=== PATIENT | male | born 1970 | race African-American/Black ===

== ENCOUNTER 2020-11-28 11:56 | Inpatient (IN) | payer OTHER ==
[2020-11-28 12:40] LABS: VENOUS BASE EXCESS -4.3 mmol/L (-2-2); VENOUS O2 SATURATION 84.9 % (70-80); VENOUS PCO2 57.9 mmHg (38-52); VENOUS PH 7.226 (7.310-7.410)
[2020-11-28 12:45] LABS: BASO % 0.1 % (0-2.0); EOS % 0.6 % (0-4.5); HEMATOCRIT 28.7 % (35.4-49); HEMOGLOBIN 9.1 GM/dL (11.7-16.9); MCH 27.1 pg (25.7-33.7); MCHC 31.8 g/dl (32.0-35.9); MEAN CELL VOLUME 85.1 fl (80-96); MONO % 4.2 % (3.8-10.2); NEUT % 89.1 % (42.8-82.8); PLATELET COUNT 92 K/MM3 (134-434); RBC 3.37 M/mm3 (4.00-5.60); RDW 16.8 % (11.9-15.9); WHITE BLOOD COUNT 14.3 K/mm3 (4.0-10.0)
[2020-11-28 13:10] LABS: CHLORIDE 114 mmol/L (98-107); SODIUM 146 mmol/L (136-145)
[2020-11-28 13:12] LABS: ALBUMIN 1.8 g/dl (3.4-5.0); CALCIUM 7.6 mg/dL (8.5-10.1)
[2020-11-28 13:13] LABS: EPI CELLS >36 /uL (0-25.1); HYALINE CASTS 4 /uL (0-3.1); PH,URINE 6.5 (5.0-8.0); URINE APPEARANCE CLEAR; URINE BACTERIA 117 /uL (0-1359); URINE BILIRUBIN NEGATIVE (NEGATIVE); URINE COLOR YELLOW; URINE GLUCOSE (UA) NEGATIVE (NEGATIVE); URINE KETONE NEGATIVE (NEGATIVE); URINE LEUK ESTERASE 1+ (NEGATIVE); URINE NITRITE NEGATIVE (NEGATIVE); URINE PROTEIN 1+ (NEGATIVE); URINE RBC 12 /uL (0-23.9); URINE UROBILINOGEN 0.2 mg/dL (0.2-1.0); URINE WBC 76 /uL (0-25.8)
[2020-11-28 13:13] LABS: BLOOD UREA NITROGEN 11.5 mg/dL (7-18); CO2 23 mmol/L (21-32); GLUCOSE,RANDOM 147 mg/dL (74-106)
[2020-11-28 13:15] LABS: BILIRUBIN,DIRECT 0.2 mg/dL (0.0-0.2); SGOT/AST 16 U/L (15-37); SGPT/ALT 15 U/L (13-61)
[2020-11-28 13:17] LABS: BILIRUBIN,TOTAL 0.3 mg/dL (0.2-1); LDH 286 U/L (87-246); TOT PROT 6.4 g/dl (6.4-8.2)
[2020-11-28 13:18] LABS: ALK PHOS 100 U/L (45-117)
[2020-11-28 13:27] LABS: ANION GAP 9 MMOL/L (8-16)
[2020-11-28 13:29] LABS: POTASSIUM 2.9 mmol/L (3.5-5.1)
[2020-11-28 13:40] LABS: ANISOCYTOSIS 1+; MACROCYTOSIS 0; PLATELET ESTIMATE DECREASED
[2020-11-28] MEDS ORDERED: DEXAMETHASONE SOD PHOSPHATE 10 MG/1 ML VIAL IVPUSH ONE (13:40)
[2020-11-28 15:11] LABS: MAGNESIUM 1.1 mg/dL (1.8-2.4)
[2020-11-28] MEDS ORDERED: PIPERACILLIN/TAZOB 4.5 GM 4.5 GM in DEXTROSE 5%-WATER 100 ML IVPB ONE (15:37)
[2020-11-28] MEDS ORDERED: VANCOMYCIN/WATER BAGS 1,250 MG/250 ML BAG IVPB SCH (16:15)
[2020-11-28] MEDS ORDERED: MAGNESIUM SULF 50% (8.12 MEQ/2 ML-1 GM VIAL) IVPB ONE (16:32)
[2020-11-28] MEDS ORDERED: KCL 10 MEQ IVPB 30 MEQ/300 ML INFUS.BAG IVPB ONE (16:34)
[2020-11-28] MEDS ORDERED: PIPERACILLIN/TAZOB 4.5 GM 4.5 GM/100 ML BAG IVPB ONE (16:34)
[2020-11-28] MEDS ORDERED: VANCOMYCIN 1 GRAM (PRE-DOCKED) 1,000 MG/250 ML BAG IVPB ONE ×2 (16:34→18:53)
[2020-11-28] MEDS ORDERED: POTASSIUM CHLORIDE ORAL LIQUID 20 MEQ/15 ML PO ONE (17:13)
[2020-11-28] MEDS ORDERED: MAGNESIUM SULFATE IN WATER 2 GM/50 ML IVPB IVPB ONE (17:57)
[2020-11-28] MEDS ORDERED: PIPERACILLIN/TAZOB 4.5 GM 4.5 GM in DEXTROSE 5%-WATER 100 ML IVPB SCH (18:00)
[2020-11-28] MEDS ORDERED: CEFEPIME HCL/D5W 2 GM/50 ML BAG IVPB SCH (22:00)
[2020-11-28] MEDS ORDERED: levETIRAcetam 500 MG TABLET (FP) PO ONE (22:29)
[2020-11-28] MEDS ORDERED: Lacosamide 200 MG/20 ML VIAL IVPB ONE (22:29)
[2020-11-28] MEDS ORDERED: ATORVASTATIN CA 10 MG TABLET (FP) ONE (22:30)
[2020-11-28] MEDS ORDERED: CEFEPIME 1 GM/100 ML BAG IVPB ONE (22:30)
[2020-11-28] MEDS ORDERED: busPIRone HCL 5 MG TABLET ONE (22:30)
[2020-11-28] MEDS: busPIRone HCL 10 MG TABLET (FP) NR SCH (22:48)
[2020-11-28] MEDS: ATORVASTATIN CA 10 MG TABLET (FP) PEG SCH (22:48)
[2020-11-28] MEDS: levETIRAcetam 500 MG/5 ML ORAL SOLUTION (UNIT-DOSE CUPS) PEG SCH (22:49)
[2020-11-29] MEDS: Lacosamide 50 MG/5 ML ORAL SOLUTION UNIT CUPS PEG SCH ×3 (00:46→22:59)
[2020-11-29] MEDS: CEFEPIME 2 GM in DEXTROSE 5%-WATER 2 GM/100 ML BAG IVPB SCH ×2 (00:46→09:00)
[2020-11-29] MEDS: KCL 10 MEQ IVPB 10 MEQ/100 ML INFUS.BAG IVPB SCH ×2 (04:05→10:05)
[2020-11-29 04:13] LABS: POTASSIUM 3.6 mmol/L (3.5-5.1)
[2020-11-29 04:15] LABS: ALBUMIN 1.8 g/dl (3.4-5.0); BLOOD UREA NITROGEN 13.2 mg/dL (7-18); CALCIUM 7.7 mg/dL (8.5-10.1); MAGNESIUM 1.5 mg/dL (1.8-2.4)
[2020-11-29 04:18] LABS: CREATININE 1.3 mg/dL (0.55-1.3)
[2020-11-29 04:20] LABS: BILIRUBIN,TOTAL 0.8 mg/dL (0.2-1); TOT PROT 6.1 g/dl (6.4-8.2)
[2020-11-29 04:32] LABS: INR 1.22 (0.83-1.09); PROTHROMBIN TIME (PATIENT) 14.9 SEC (9.7-13.0)
[2020-11-29 07:35] LABS: EOS % 0.1 % (0-4.5); HEMOGLOBIN 8.1 GM/dL (11.7-16.9); LYMPH % 5.2 % (8-40); MCH 27.2 pg (25.7-33.7); MCHC 32.5 g/dl (32.0-35.9); MEAN CELL VOLUME 83.8 fl (80-96); MEAN PLT VOLUME 11.2 fl (7.5-11.1); MONO % 1.7 % (3.8-10.2); PLATELET COUNT 107 K/MM3 (134-434); RBC 2.99 M/mm3 (4.00-5.60); RDW 16.5 % (11.9-15.9); WHITE BLOOD COUNT 19.2 K/mm3 (4.0-10.0)
[2020-11-29] MEDS: busPIRone HCL 10 MG TABLET (FP) NR SCH ×3 (07:59→23:00)
[2020-11-29 08:02] LABS: N-TERMINAL BNP 7366.1 pg/ml (5-125)
[2020-11-29] MEDS ORDERED: amLODIPine BESYLATE 5 MG TABLET (FP) ONE (08:45)
[2020-11-29] MEDS ORDERED: PANTOPRAZOLE SODIUM 40 MG VIAL ONE (08:45)
[2020-11-29] MEDS ORDERED: ENOXAPARIN NA (PORCINE) 40 MG/0.4 ML DISP.SYRIN SQ ONE (08:45)
[2020-11-29] MEDS ORDERED: ASPIRIN 81 MG CHEWABLE TABLETS ONE (08:45)
[2020-11-29] MEDS ORDERED: CEFEPIME 2 GM/100 ML BAG IVPB ONE (08:46)
[2020-11-29] MEDS: ASPIRIN 81 MG CHEWABLE TABLETS PEG SCH (09:00)
[2020-11-29] MEDS: levETIRAcetam 500 MG/5 ML ORAL SOLUTION (UNIT-DOSE CUPS) PEG SCH ×2 (09:00→22:59)
[2020-11-29] MEDS: amLODIPine BESYLATE 5 MG TABLET (FP) PEG SCH (09:00)
[2020-11-29] MEDS: ENOXAPARIN NA (PORCINE) 40 MG/0.4 ML DISP.SYRIN SQ SCH (09:00)
[2020-11-29] MEDS: PANTOPRAZOLE SODIUM 40 MG VIAL IVPUSH SCH (09:00)
[2020-11-29 09:04] LABS: ANISOCYTOSIS 2+; MACROCYTOSIS 0; PLATELET ESTIMATE DECREASED; TARGET CELLS 1+
[2020-11-29] MEDS ORDERED: Lacosamide 50 MG/5 ML ORAL SOLUTION UNIT CUPS ONE (09:04)
[2020-11-29 15:13] LABS: MAGNESIUM 1.6 mg/dL (1.8-2.4)
[2020-11-29] MEDS ORDERED: POTASSIUM CHLORIDE ORAL LIQUID 20 MEQ/15 ML PO ONE (21:12)
[2020-11-29] MEDS ORDERED: MAGNESIUM SULF 50% (8.12 MEQ/2 ML-1 GM VIAL) IVPB ONE (21:12)
[2020-11-29] MEDS ORDERED: busPIRone HCL 5 MG TABLET ONE (22:44)
[2020-11-29] MEDS ORDERED: POTASSIUM CHLORIDE ORAL LIQUID 20 MEQ/15 ML ONE (22:44)
[2020-11-29] MEDS ORDERED: ATORVASTATIN CA 10 MG TABLET (FP) ONE (22:44)
[2020-11-29] MEDS ORDERED: MAGNESIUM SULFATE IN WATER 2 GM/50 ML IVPB IVPB ONE (22:45)
[2020-11-29] MEDS: ATORVASTATIN CA 10 MG TABLET (FP) PEG SCH (22:59)
[2020-11-29] MEDS ORDERED: PIPERACILLIN/TAZOB 3.375 GM 3.375 GM/50 ML BAG IVPB ONE (23:52)
[2020-11-30] MEDS ORDERED: busPIRone HCL 5 MG TABLET ONE (06:25)
[2020-11-30] MEDS: busPIRone HCL 10 MG TABLET (FP) NR SCH ×2 (06:43→13:07)
[2020-11-30] MEDS: PIPERACILLIN/TAZOB 3.375 GM 3.375 GM in DEXTROSE 5%-WATER - 50 ML IVPB SCH ×4 (06:43→18:32)
[2020-11-30] MEDS ORDERED: ASPIRIN 81 MG CHEWABLE TABLETS ONE (09:25)
[2020-11-30] MEDS ORDERED: amLODIPine BESYLATE 5 MG TABLET (FP) ONE (09:25)
[2020-11-30] MEDS ORDERED: PANTOPRAZOLE SODIUM 40 MG VIAL ONE (09:26)
[2020-11-30] MEDS ORDERED: ENOXAPARIN NA (PORCINE) 40 MG/0.4 ML DISP.SYRIN SQ ONE (09:26)
[2020-11-30] MEDS ORDERED: PIPERACILLIN/TAZOB 3.375 GM 3.375 GM/50 ML BAG IVPB ONE ×2 (09:27→18:09)
[2020-11-30 10:22] LABS: ARTERIAL BLD GAS O2 SATURATION 98.4 mmHg (95-98); ARTERIAL BLOOD GAS BASE EXCESS -2.4 mmol/L (-2-2); ARTERIAL BLOOD GAS PO2 131.2 mmHg (80-100); ARTERIAL BLOOD GAS pH 7.327 (7.350-7.450)
[2020-11-30] MEDS: ASPIRIN 81 MG CHEWABLE TABLETS PEG SCH (10:36)
[2020-11-30] MEDS: Lacosamide 50 MG/5 ML ORAL SOLUTION UNIT CUPS PEG SCH (10:36)
[2020-11-30] MEDS: ENOXAPARIN NA (PORCINE) 40 MG/0.4 ML DISP.SYRIN SQ SCH (10:36)
[2020-11-30] MEDS: levETIRAcetam 500 MG/5 ML ORAL SOLUTION (UNIT-DOSE CUPS) PEG SCH (10:36)
[2020-11-30] MEDS: amLODIPine BESYLATE 5 MG TABLET (FP) PEG SCH (10:36)
[2020-11-30] MEDS: PANTOPRAZOLE SODIUM 40 MG VIAL IVPUSH SCH (10:36)
[2020-11-30 11:25] LABS: BASO % 0.3 % (0-2.0); EOS % 0.6 % (0-4.5); HEMATOCRIT 21.8 % (35.4-49); LYMPH % 8.9 % (8-40); MCH 26.6 pg (25.7-33.7); MCHC 31.6 g/dl (32.0-35.9); MEAN CELL VOLUME 84.3 fl (80-96); MONO % 4.7 % (3.8-10.2); NEUT % 85.5 % (42.8-82.8); PLATELET COUNT 103 K/MM3 (134-434); RBC 2.59 M/mm3 (4.00-5.60); RDW 17.3 % (11.9-15.9); WHITE BLOOD COUNT 18.8 K/mm3 (4.0-10.0)
[2020-11-30 11:27] LABS: HEMOGLOBIN 6.9 GM/dL (11.7-16.9)
[2020-11-30 11:49] LABS: POTASSIUM 3.8 mmol/L (3.5-5.1)
[2020-11-30 11:52] LABS: ALBUMIN 1.8 g/dl (3.4-5.0); BLOOD UREA NITROGEN 21.4 mg/dL (7-18); MAGNESIUM 1.8 mg/dL (1.8-2.4)
[2020-11-30] MEDS ORDERED: FUROSEMIDE 40 MG/4 ML INJECTABLE VIAL IVPUSH ONE (11:54)
[2020-11-30 11:55] LABS: CREATININE 1.6 mg/dL (0.55-1.3)
[2020-11-30 11:56] LABS: BILIRUBIN,TOTAL 0.7 mg/dL (0.2-1); TOT PROT 6.1 g/dl (6.4-8.2)
[2020-11-30 12:42] LABS: ANISOCYTOSIS 2+; MACROCYTOSIS 0; OVALOCYTE 1+; PLATELET ESTIMATE DECREASED; SICKELED CELLS 1+; TARGET CELLS 1+
[2020-11-30] MEDS ORDERED: ZINC OXIDE 20% TOPICAL OINTMENT 30 GM TUBE TP PRN (17:59)
[2020-11-30] MEDS ORDERED: ALBUTEROL SO4 HFA INHALER IH PRN (17:59)
[2020-11-30] MEDS: LEVOTHYROXINE NA 25 MCG TABLET (FP) PO SCH (18:52)
[2020-11-30] MEDS ORDERED: MAGNESIUM SULF 50% (8.12 MEQ/2 ML-1 GM VIAL) IVPB ONE (19:24)
[2020-11-30] MEDS ORDERED: LINEZOLID 600 MG PREMIX BAG 600 MG in PREMIX 300 IVPB SCH (19:45)
[2020-11-30] MEDS ORDERED: Lacosamide 50 MG/5 ML ORAL SOLUTION UNIT CUPS GT SCH (22:00)
[2020-11-30] MEDS ORDERED: PATIENT'S OWN MEDICATION (NON-FORMULARY) (Simvastatin [Simvastatin] 10 MG Tablet) GT SCH (22:00)
[2020-11-30] MEDS: INSULIN SLIDING SCALE (NOVOLOG) 1 VIAL SQ SCH (23:15)
[2020-12-01] MEDS: LINEZOLID 600 MG PREMIX BAG 600 MG/300 ML BAG IVPB SCH ×2 (00:46→08:14)
[2020-12-01] MEDS: levETIRAcetam 500 MG/5 ML ORAL SOLUTION (UNIT-DOSE CUPS) GT SCH ×3 (00:47→21:28)
[2020-12-01] MEDS: METOCLOPRAMIDE HCL 10 MG/10 ML UNIT DOSE CUP GT SCH ×4 (00:47→21:28)
[2020-12-01] MEDS ORDERED: DEXTROSE 5%-WATER - 50 ML IVPB ONE ×3 (00:52→17:28)
[2020-12-01] MEDS ORDERED: PIPERACILLIN/TAZOBACTAM 3.375 GM VIAL IVPB ONE ×3 (00:52→17:28)
[2020-12-01] MEDS: ARTIFICIAL TEARS (POLYVINYL ALCOHOL) OPTH DROPS OU SCH ×3 (01:17→21:29)
[2020-12-01] MEDS: busPIRone HCL 10 MG TABLET (FP) PO SCH ×4 (01:17→21:28)
[2020-12-01] MEDS: ATORVASTATIN CA 10 MG TABLET (FP) PEG SCH ×2 (01:18→21:27)
[2020-12-01] MEDS: PIPERACILLIN/TAZOB 3.375 GM 3.375 GM in DEXTROSE 5%-WATER - 50 ML IVPB SCH ×3 (02:47→17:30)
[2020-12-01] MEDS ORDERED: DEXTROSE 5%-NORMAL SALINE 500 ML IV ONE (03:34)
[2020-12-01] MEDS: Lacosamide 50 MG/5 ML ORAL SOLUTION UNIT CUPS GT SCH ×4 (03:53→21:27)
[2020-12-01] MEDS ORDERED: MAGNESIUM SULF 50% (8.12 MEQ/2 ML-1 GM VIAL) IVPB ONE (04:00)
[2020-12-01] MEDS ORDERED: HALOPERIDOL LACTATE 5 MG/ML IM ONE ×2 (04:00→21:58)
[2020-12-01] MEDS: INSULIN SLIDING SCALE (NOVOLOG) 1 VIAL SQ SCH ×4 (06:17→21:29)
[2020-12-01] MEDS: LEVOTHYROXINE NA 25 MCG TABLET (FP) PO SCH (06:17)
[2020-12-01 06:57] LABS: BASO % 0.4 % (0-2.0); EOS % 2.8 % (0-4.5); HEMATOCRIT 24.7 % (35.4-49); HEMOGLOBIN 8.1 GM/dL (11.7-16.9); LYMPH % 15.9 % (8-40); MCH 27.5 pg (25.7-33.7); MCHC 32.9 g/dl (32.0-35.9); MEAN CELL VOLUME 83.6 fl (80-96); MEAN PLT VOLUME 10.9 fl (7.5-11.1); MONO % 9.9 % (3.8-10.2); PLATELET COUNT 98 K/MM3 (134-434); RBC 2.96 M/mm3 (4.00-5.60); RDW 16.7 % (11.9-15.9); WHITE BLOOD COUNT 14.1 K/mm3 (4.0-10.0)
[2020-12-01 07:24] LABS: POTASSIUM 3.4 mmol/L (3.5-5.1)
[2020-12-01 07:27] LABS: ALBUMIN 1.9 g/dl (3.4-5.0); BLOOD UREA NITROGEN 21.9 mg/dL (7-18); CALCIUM 7.9 mg/dL (8.5-10.1)
[2020-12-01 07:30] LABS: CREATININE 1.6 mg/dL (0.55-1.3)
[2020-12-01 07:31] LABS: PHOSPHOROUS 3.8 mg/dL (2.5-4.9)
[2020-12-01] MEDS ORDERED: POTASSIUM CHLORIDE ORAL LIQUID 20 MEQ/15 ML PO ONE (09:20)
[2020-12-01] MEDS ORDERED: ASPIRIN 81 MG CHEWABLE TABLETS GT SCH (10:00)
[2020-12-01] MEDS: PANTOPRAZOLE SODIUM 40 MG VIAL IVPUSH SCH (11:00)
[2020-12-01] MEDS: amLODIPine BESYLATE 5 MG TABLET (FP) GT SCH (11:00)
[2020-12-01] MEDS ORDERED: PT OWN MED DRAWER 7, Y5N ONE (11:45)
[2020-12-01 16:04] LABS: ANISOCYTOSIS 0; MACROCYTOSIS 0; PLATELET ESTIMATE DECREASED
[2020-12-01] MEDS ORDERED: SODIUM CHLORIDE 0.45%/POT 20 MEQ/1,000 ML INFUS.BAG IV SCH (17:00)
[2020-12-01] MEDS: AMINO ACIDS/PROTEIN HYDROLYS 30 ML LIQUID.PKT PO SCH (17:30)
[2020-12-01 19:29] LABS: EPI CELLS 2 /uL (0-25.1); HYALINE CASTS 6 /uL (0-3.1); URINE APPEARANCE CLEAR; URINE BACTERIA 197 /uL (0-1359); URINE BILIRUBIN NEGATIVE (NEGATIVE); URINE COLOR YELLOW; URINE GLUCOSE (UA) NEGATIVE (NEGATIVE); URINE KETONE NEGATIVE (NEGATIVE); URINE LEUK ESTERASE 2+ (NEGATIVE); URINE NITRITE NEGATIVE (NEGATIVE); URINE PROTEIN 1+ (NEGATIVE); URINE RBC 22 /uL (0-23.9); URINE UROBILINOGEN 0.2 mg/dL (0.2-1.0); URINE WBC 180 /uL (0-25.8)
[2020-12-02] MEDS ORDERED: PIPERACILLIN/TAZOBACTAM 3.375 GM VIAL IVPB ONE (01:20)
[2020-12-02] MEDS ORDERED: DEXTROSE 5%-WATER - 50 ML IVPB ONE (01:20)
[2020-12-02] MEDS: PIPERACILLIN/TAZOB 3.375 GM 3.375 GM in DEXTROSE 5%-WATER - 50 ML IVPB SCH (01:40)
[2020-12-02] MEDS: LEVOTHYROXINE NA 25 MCG TABLET (FP) PO SCH (06:32)
[2020-12-02] MEDS: busPIRone HCL 10 MG TABLET (FP) PO SCH ×3 (06:33→21:16)
[2020-12-02] MEDS: INSULIN SLIDING SCALE (NOVOLOG) 1 VIAL SQ SCH ×4 (06:33→22:30)
[2020-12-02] MEDS: METOCLOPRAMIDE HCL 10 MG/10 ML UNIT DOSE CUP GT SCH ×3 (06:33→21:17)
[2020-12-02 07:10] LABS: BASO % 0.4 % (0-2.0); EOS % 2.7 % (0-4.5); HEMATOCRIT 27.3 % (35.4-49); HEMOGLOBIN 8.9 GM/dL (11.7-16.9); LYMPH % 15.3 % (8-40); MCH 27.4 pg (25.7-33.7); MCHC 32.5 g/dl (32.0-35.9); MEAN CELL VOLUME 84.4 fl (80-96); MEAN PLT VOLUME 11.7 fl (7.5-11.1); MONO % 10.7 % (3.8-10.2); NEUT % 70.9 % (42.8-82.8); PLATELET COUNT 116 K/MM3 (134-434); RBC 3.23 M/mm3 (4.00-5.60); RDW 17.2 % (11.9-15.9); WHITE BLOOD COUNT 15.4 K/mm3 (4.0-10.0)
[2020-12-02 07:22] LABS: POTASSIUM 3.7 mmol/L (3.5-5.1)
[2020-12-02 07:24] LABS: CALCIUM 8.2 mg/dL (8.5-10.1)
[2020-12-02 07:25] LABS: BLOOD UREA NITROGEN 19.1 mg/dL (7-18); MAGNESIUM 1.7 mg/dL (1.8-2.4)
[2020-12-02 07:28] LABS: CREATININE 1.4 mg/dL (0.55-1.3); PHOSPHOROUS 3.4 mg/dL (2.5-4.9)
[2020-12-02] MEDS ORDERED: MAGNESIUM OXIDE 400 MG TABLET (FP) GT ONE (07:52)
[2020-12-02] MEDS: DEXTROSE 5%-0.45% SALINE 1,000 ML IV SCH (08:00)
[2020-12-02] MEDS: amLODIPine BESYLATE 5 MG TABLET (FP) GT SCH (09:00)
[2020-12-02] MEDS: levETIRAcetam 500 MG/5 ML ORAL SOLUTION (UNIT-DOSE CUPS) GT SCH ×2 (09:00→21:17)
[2020-12-02] MEDS: ARTIFICIAL TEARS (POLYVINYL ALCOHOL) OPTH DROPS OU SCH ×2 (09:00→21:16)
[2020-12-02] MEDS: LINEZOLID 600 MG PREMIX BAG 600 MG/300 ML BAG IVPB SCH ×2 (09:00→21:24)
[2020-12-02] MEDS: ENOXAPARIN NA (PORCINE) 40 MG/0.4 ML DISP.SYRIN SQ SCH (09:00)
[2020-12-02] MEDS: AMINO ACIDS/PROTEIN HYDROLYS 30 ML LIQUID.PKT PO SCH ×2 (09:00→17:19)
[2020-12-02] MEDS ORDERED: MEROPENEM 1 GM VIAL (RESTRICTED TO ID) IVPB ONE ×2 (09:04→16:48)
[2020-12-02] MEDS ORDERED: DEXTROSE 5%-WATER 100 ML IVPB ONE ×2 (09:04→16:48)
[2020-12-02] MEDS ORDERED: PT OWN MED DRAWER 7, Y5N ONE (09:05)
[2020-12-02] MEDS: PANTOPRAZOLE SODIUM 40 MG VIAL IVPUSH SCH (09:16)
[2020-12-02] MEDS: MEROPENEM 1 GM in DEXTROSE 5%-WATER 100 ML IVPB SCH ×2 (09:16→17:19)
[2020-12-02] MEDS ORDERED: COD LIVER OIL/ZINC OXIDE PASTE 56 GM TUBE TP PRN (11:19)
[2020-12-02] MEDS: Lacosamide 50 MG/5 ML ORAL SOLUTION UNIT CUPS GT SCH ×2 (11:42→22:16)
[2020-12-02 12:29] LABS: ANISOCYTOSIS 1+; MACROCYTOSIS 0; PLATELET ESTIMATE DECREASED
[2020-12-02] MEDS: ATORVASTATIN CA 10 MG TABLET (FP) PEG SCH (21:27)
[2020-12-03] MEDS ORDERED: MEROPENEM 1 GM VIAL (RESTRICTED TO ID) IVPB ONE ×3 (01:24→16:54)
[2020-12-03] MEDS ORDERED: DEXTROSE 5%-WATER 100 ML IVPB ONE ×3 (01:24→16:54)
[2020-12-03] MEDS: MEROPENEM 1 GM in DEXTROSE 5%-WATER 100 ML IVPB SCH ×3 (01:34→17:59)
[2020-12-03] MEDS: METOCLOPRAMIDE HCL 10 MG/10 ML UNIT DOSE CUP GT SCH ×3 (05:22→22:23)
[2020-12-03] MEDS: busPIRone HCL 10 MG TABLET (FP) PO SCH ×3 (05:23→22:21)
[2020-12-03] MEDS: LEVOTHYROXINE NA 25 MCG TABLET (FP) PO SCH (06:26)
[2020-12-03] MEDS: INSULIN SLIDING SCALE (NOVOLOG) 1 VIAL SQ SCH ×4 (06:26→22:27)
[2020-12-03] MEDS ORDERED: ARIPiprazole 30 MG TABLET PO SCH (10:00)
[2020-12-03] MEDS ORDERED: PT OWN MED DRAWER 7, Y5N ONE ×2 (10:28→22:19)
[2020-12-03] MEDS: DEXTROSE 5%-0.45% SALINE 1,000 ML IV SCH (10:31)
[2020-12-03] MEDS: AMINO ACIDS/PROTEIN HYDROLYS 30 ML LIQUID.PKT PO SCH ×2 (10:31→17:58)
[2020-12-03] MEDS: Lacosamide 50 MG/5 ML ORAL SOLUTION UNIT CUPS GT SCH ×2 (10:32→22:24)
[2020-12-03] MEDS: PANTOPRAZOLE SODIUM 40 MG VIAL IVPUSH SCH (10:33)
[2020-12-03] MEDS: ENOXAPARIN NA (PORCINE) 40 MG/0.4 ML DISP.SYRIN SQ SCH (10:33)
[2020-12-03] MEDS: amLODIPine BESYLATE 5 MG TABLET (FP) GT SCH (10:52)
[2020-12-03] MEDS: ARTIFICIAL TEARS (POLYVINYL ALCOHOL) OPTH DROPS OU SCH ×2 (10:54→22:20)
[2020-12-03] MEDS: ARIPiprazole 30 MG TABLET NR SCH (10:54)
[2020-12-03] MEDS: LINEZOLID 600 MG PREMIX BAG 600 MG/300 ML BAG IVPB SCH ×2 (10:55→22:24)
[2020-12-03] MEDS: levETIRAcetam 500 MG/5 ML ORAL SOLUTION (UNIT-DOSE CUPS) GT SCH ×2 (10:55→22:22)
[2020-12-03 11:28] LABS: BASO % 0.3 % (0-2.0); EOS % 2.9 % (0-4.5); HEMATOCRIT 28.9 % (35.4-49); HEMOGLOBIN 9.2 GM/dL (11.7-16.9); LYMPH % 13.9 % (8-40); MCH 26.9 pg (25.7-33.7); MCHC 31.7 g/dl (32.0-35.9); MEAN CELL VOLUME 84.9 fl (80-96); MEAN PLT VOLUME 12.1 fl (7.5-11.1); MONO % 7.3 % (3.8-10.2); NEUT % 75.6 % (42.8-82.8); PLATELET COUNT 136 K/MM3 (134-434); RDW 16.8 % (11.9-15.9); WHITE BLOOD COUNT 14.2 K/mm3 (4.0-10.0)
[2020-12-03 11:43] LABS: POTASSIUM 3.4 mmol/L (3.5-5.1)
[2020-12-03 11:48] LABS: CALCIUM 7.6 mg/dL (8.5-10.1)
[2020-12-03 11:49] LABS: BLOOD UREA NITROGEN 15.4 mg/dL (7-18)
[2020-12-03 11:52] LABS: CREATININE 1.2 mg/dL (0.55-1.3)
[2020-12-03 11:55] LABS: MAGNESIUM 1.2 mg/dL (1.8-2.4)
[2020-12-03 12:35] LABS: ANISOCYTOSIS 1+; MACROCYTOSIS 0; PLATELET ESTIMATE DECREASED; TEAR DROP CELLS 1+
[2020-12-03] MEDS ORDERED: MAGNESIUM SULF 50% (8.12 MEQ/2 ML-1 GM VIAL) IVPB ONE ×2 (14:04→22:00)
[2020-12-03] MEDS ORDERED: POTASSIUM CHLORIDE ORAL LIQUID 20 MEQ/15 ML GT ONE (14:05)
[2020-12-03] MEDS ORDERED: DEXTROSE 5%-0.45% SALINE 1,000 ML IV SCH (18:23)
[2020-12-03] MEDS: ATORVASTATIN CA 10 MG TABLET (FP) PEG SCH (22:22)
[2020-12-04] MEDS ORDERED: DEXTROSE 5%-WATER 100 ML IVPB ONE ×3 (01:00→17:09)
[2020-12-04] MEDS ORDERED: MEROPENEM 1 GM VIAL (RESTRICTED TO ID) IVPB ONE ×3 (01:00→17:08)
[2020-12-04] MEDS: MEROPENEM 1 GM in DEXTROSE 5%-WATER 100 ML IVPB SCH ×3 (01:16→17:29)
[2020-12-04] MEDS: METOCLOPRAMIDE HCL 10 MG/10 ML UNIT DOSE CUP GT SCH ×3 (05:20→21:45)
[2020-12-04] MEDS: busPIRone HCL 10 MG TABLET (FP) PO SCH ×3 (05:20→21:46)
[2020-12-04] MEDS: LEVOTHYROXINE NA 25 MCG TABLET (FP) PO SCH (06:41)
[2020-12-04] MEDS: INSULIN SLIDING SCALE (NOVOLOG) 1 VIAL SQ SCH ×4 (06:41→23:17)
[2020-12-04 07:41] LABS: HEMATOCRIT 29.9 % (35.4-49); HEMOGLOBIN 9.8 GM/dL (11.7-16.9); MCH 27.6 pg (25.7-33.7); MCHC 32.8 g/dl (32.0-35.9); MEAN PLT VOLUME 11.7 fl (7.5-11.1); PLATELET COUNT 147 K/MM3 (134-434); RBC 3.55 M/mm3 (4.00-5.60); RDW 16.8 % (11.9-15.9); WHITE BLOOD COUNT 13.9 K/mm3 (4.0-10.0)
[2020-12-04 07:57] LABS: POTASSIUM 3.5 mmol/L (3.5-5.1)
[2020-12-04 08:03] LABS: BLOOD UREA NITROGEN 12.8 mg/dL (7-18); CALCIUM 7.7 mg/dL (8.5-10.1); MAGNESIUM 2.1 mg/dL (1.8-2.4)
[2020-12-04 08:07] LABS: CREATININE 1.1 mg/dL (0.55-1.3); PHOSPHOROUS 3.5 mg/dL (2.5-4.9)
[2020-12-04] MEDS: ARTIFICIAL TEARS (POLYVINYL ALCOHOL) OPTH DROPS OU SCH ×2 (10:39→22:00)
[2020-12-04] MEDS: PANTOPRAZOLE SODIUM 40 MG VIAL IVPUSH SCH (10:39)
[2020-12-04] MEDS: ARIPiprazole 30 MG TABLET NR SCH (10:39)
[2020-12-04] MEDS: Lacosamide 50 MG/5 ML ORAL SOLUTION UNIT CUPS GT SCH ×2 (10:39→21:45)
[2020-12-04] MEDS: LACTOBACILLUS ACIDOPHILUS 1 TABLET PO SCH (10:39)
[2020-12-04] MEDS: levETIRAcetam 500 MG/5 ML ORAL SOLUTION (UNIT-DOSE CUPS) GT SCH ×2 (10:39→21:46)
[2020-12-04] MEDS: ENOXAPARIN NA (PORCINE) 40 MG/0.4 ML DISP.SYRIN SQ SCH (10:39)
[2020-12-04] MEDS: amLODIPine BESYLATE 5 MG TABLET (FP) GT SCH (10:39)
[2020-12-04] MEDS: AMINO ACIDS/PROTEIN HYDROLYS 30 ML LIQUID.PKT PO SCH ×2 (10:39→17:05)
[2020-12-04] MEDS: LINEZOLID 600 MG PREMIX BAG 600 MG/300 ML BAG IVPB SCH ×2 (10:39→21:45)
[2020-12-04] MEDS ORDERED: PT OWN MED DRAWER 7, Y5N ONE (16:34)
[2020-12-04] MEDS: BANATROL PLUS POWDER PACKET PO SCH ×2 (16:35→21:44)
[2020-12-04] MEDS: ATORVASTATIN CA 10 MG TABLET (FP) PEG SCH (21:44)
[2020-12-05] MEDS: ARTIFICIAL TEARS (POLYVINYL ALCOHOL) OPTH DROPS OU SCH ×2 (01:00→21:21)
[2020-12-05] MEDS ORDERED: MEROPENEM 1 GM VIAL (RESTRICTED TO ID) IVPB ONE ×4 (02:33→21:24)
[2020-12-05] MEDS: MEROPENEM 1 GM in DEXTROSE 5%-WATER 100 ML IVPB SCH ×3 (02:34→19:00)
[2020-12-05] MEDS: INSULIN SLIDING SCALE (NOVOLOG) 1 VIAL SQ SCH ×3 (06:19→21:31)
[2020-12-05] MEDS: LEVOTHYROXINE NA 25 MCG TABLET (FP) PO SCH (06:21)
[2020-12-05] MEDS: busPIRone HCL 10 MG TABLET (FP) PO SCH ×3 (06:21→21:21)
[2020-12-05] MEDS: METOCLOPRAMIDE HCL 10 MG/10 ML UNIT DOSE CUP GT SCH ×3 (06:21→21:22)
[2020-12-05] MEDS: BANATROL PLUS POWDER PACKET PO SCH ×3 (06:21→21:21)
[2020-12-05 06:35] LABS: HEMATOCRIT 29.2 % (35.4-49); HEMOGLOBIN 9.5 GM/dL (11.7-16.9); MCH 27.3 pg (25.7-33.7); MCHC 32.6 g/dl (32.0-35.9); MEAN CELL VOLUME 83.8 fl (80-96); MEAN PLT VOLUME 11.6 fl (7.5-11.1); PLATELET COUNT 151 K/MM3 (134-434); RBC 3.48 M/mm3 (4.00-5.60); RDW 17.1 % (11.9-15.9); WHITE BLOOD COUNT 12.6 K/mm3 (4.0-10.0)
[2020-12-05 06:52] LABS: POTASSIUM 3.5 mmol/L (3.5-5.1)
[2020-12-05 06:55] LABS: CALCIUM 7.3 mg/dL (8.5-10.1)
[2020-12-05 06:56] LABS: BLOOD UREA NITROGEN 13.1 mg/dL (7-18); MAGNESIUM 1.2 mg/dL (1.8-2.4)
[2020-12-05 06:59] LABS: PHOSPHOROUS 3.7 mg/dL (2.5-4.9)
[2020-12-05] MEDS ORDERED: MAGNESIUM SULF 50% (8.12 MEQ/2 ML-1 GM VIAL) IVPB ONE (07:59)
[2020-12-05] MEDS: AMINO ACIDS/PROTEIN HYDROLYS 30 ML LIQUID.PKT PO SCH ×2 (08:26→19:00)
[2020-12-05] MEDS ORDERED: DEXTROSE 5%-WATER 100 ML IVPB ONE ×3 (09:45→21:25)
[2020-12-05] MEDS: ARIPiprazole 30 MG TABLET NR SCH (10:00)
[2020-12-05] MEDS: ENOXAPARIN NA (PORCINE) 40 MG/0.4 ML DISP.SYRIN SQ SCH (10:00)
[2020-12-05] MEDS: levETIRAcetam 500 MG/5 ML ORAL SOLUTION (UNIT-DOSE CUPS) GT SCH ×2 (10:00→21:22)
[2020-12-05] MEDS: LACTOBACILLUS ACIDOPHILUS 1 TABLET PO SCH (10:00)
[2020-12-05] MEDS: Lacosamide 50 MG/5 ML ORAL SOLUTION UNIT CUPS GT SCH ×2 (10:00→21:28)
[2020-12-05] MEDS: PANTOPRAZOLE SODIUM 40 MG VIAL IVPUSH SCH (10:05)
[2020-12-05] MEDS: LINEZOLID 600 MG PREMIX BAG 600 MG/300 ML BAG IVPB SCH ×2 (10:05→21:28)
[2020-12-05] MEDS: amLODIPine BESYLATE 5 MG TABLET (FP) GT SCH (10:09)
[2020-12-05] MEDS ORDERED: PT OWN MED DRAWER 7, Y5N ONE (17:03)
[2020-12-06] MEDS: MEROPENEM 1 GM in DEXTROSE 5%-WATER 100 ML IVPB SCH ×3 (01:09→17:32)
[2020-12-06] MEDS: busPIRone HCL 10 MG TABLET (FP) PO SCH ×3 (06:17→21:16)
[2020-12-06] MEDS: LEVOTHYROXINE NA 25 MCG TABLET (FP) PO SCH (06:17)
[2020-12-06] MEDS: BANATROL PLUS POWDER PACKET PO SCH ×3 (06:17→21:16)
[2020-12-06] MEDS: METOCLOPRAMIDE HCL 10 MG/10 ML UNIT DOSE CUP GT SCH ×3 (06:17→21:16)
[2020-12-06 07:21] LABS: BASO % 0.3 % (0-2.0); EOS % 4.4 % (0-4.5); HEMATOCRIT 27.3 % (35.4-49); MCH 27.7 pg (25.7-33.7); MCHC 32.9 g/dl (32.0-35.9); MEAN CELL VOLUME 84.2 fl (80-96); MEAN PLT VOLUME 11.9 fl (7.5-11.1); MONO % 7.2 % (3.8-10.2); NEUT % 72.1 % (42.8-82.8); PLATELET COUNT 146 K/MM3 (134-434); RBC 3.25 M/mm3 (4.00-5.60); RDW 16.6 % (11.9-15.9); WHITE BLOOD COUNT 11.4 K/mm3 (4.0-10.0)
[2020-12-06 07:38] LABS: POTASSIUM 3.5 mmol/L (3.5-5.1)
[2020-12-06 07:44] LABS: ALBUMIN 1.7 g/dl (3.4-5.0); BLOOD UREA NITROGEN 11.1 mg/dL (7-18); CALCIUM 7.7 mg/dL (8.5-10.1)
[2020-12-06 07:47] LABS: CREATININE 0.8 mg/dL (0.55-1.3)
[2020-12-06 07:49] LABS: BILIRUBIN,TOTAL 0.3 mg/dL (0.2-1); TOT PROT 6.2 g/dl (6.4-8.2)
[2020-12-06] MEDS ORDERED: DEXTROSE 5%-WATER 100 ML IVPB ONE ×2 (09:23→16:26)
[2020-12-06] MEDS ORDERED: MEROPENEM 1 GM VIAL (RESTRICTED TO ID) IVPB ONE ×2 (09:23→16:25)
[2020-12-06] MEDS ORDERED: PT OWN MED DRAWER 7, Y5N ONE ×2 (09:24→17:23)
[2020-12-06] MEDS: Lacosamide 50 MG/5 ML ORAL SOLUTION UNIT CUPS GT SCH ×2 (09:27→21:16)
[2020-12-06] MEDS: amLODIPine BESYLATE 5 MG TABLET (FP) GT SCH (09:28)
[2020-12-06] MEDS: ENOXAPARIN NA (PORCINE) 40 MG/0.4 ML DISP.SYRIN SQ SCH (09:28)
[2020-12-06] MEDS: PANTOPRAZOLE SODIUM 40 MG VIAL IVPUSH SCH (09:29)
[2020-12-06] MEDS: LINEZOLID 600 MG PREMIX BAG 600 MG/300 ML BAG IVPB SCH ×2 (09:29→21:17)
[2020-12-06] MEDS: levETIRAcetam 500 MG/5 ML ORAL SOLUTION (UNIT-DOSE CUPS) GT SCH ×2 (09:33→21:16)
[2020-12-06] MEDS: AMINO ACIDS/PROTEIN HYDROLYS 30 ML LIQUID.PKT PO SCH ×2 (09:41→16:55)
[2020-12-06] MEDS: ARTIFICIAL TEARS (POLYVINYL ALCOHOL) OPTH DROPS OU SCH ×2 (10:30→21:15)
[2020-12-06] MEDS: ARIPiprazole 30 MG TABLET NR SCH (10:30)
[2020-12-06] MEDS: LACTOBACILLUS ACIDOPHILUS 1 TABLET PO SCH (10:30)
[2020-12-07] MEDS ORDERED: MEROPENEM 1 GM VIAL (RESTRICTED TO ID) IVPB ONE ×3 (01:15→18:03)
[2020-12-07] MEDS ORDERED: DEXTROSE 5%-WATER 100 ML IVPB ONE ×3 (01:15→18:03)
[2020-12-07] MEDS: MEROPENEM 1 GM in DEXTROSE 5%-WATER 100 ML IVPB SCH ×3 (01:38→18:04)
[2020-12-07] MEDS ORDERED: ZINC OXIDE 20% TOPICAL OINTMENT 30 GM TUBE TP PRN (04:25)
[2020-12-07] MEDS ORDERED: ALBUTEROL SO4 HFA INHALER IH PRN (04:25)
[2020-12-07] MEDS ORDERED: COD LIVER OIL/ZINC OXIDE PASTE 56 GM TUBE TP PRN (04:25)
[2020-12-07] MEDS: BANATROL PLUS POWDER PACKET PO SCH ×3 (06:10→23:00)
[2020-12-07] MEDS: METOCLOPRAMIDE HCL 10 MG/10 ML UNIT DOSE CUP GT SCH ×3 (06:10→23:02)
[2020-12-07] MEDS: busPIRone HCL 10 MG TABLET (FP) PO SCH ×3 (06:10→23:00)
[2020-12-07] MEDS: LEVOTHYROXINE NA 25 MCG TABLET (FP) PO SCH (06:10)
[2020-12-07 09:59] LABS: BASO % 0.2 % (0-2.0); EOS % 3.8 % (0-4.5); HEMOGLOBIN 8.7 GM/dL (11.7-16.9); LYMPH % 16.8 % (8-40); MCH 27.3 pg (25.7-33.7); MCHC 32.3 g/dl (32.0-35.9); MEAN CELL VOLUME 84.5 fl (80-96); MEAN PLT VOLUME 12.5 fl (7.5-11.1); MONO % 6.6 % (3.8-10.2); NEUT % 72.6 % (42.8-82.8); PLATELET COUNT 160 K/MM3 (134-434); RBC 3.19 M/mm3 (4.00-5.60); WHITE BLOOD COUNT 11.1 K/mm3 (4.0-10.0)
[2020-12-07 10:19] LABS: POTASSIUM 3.7 mmol/L (3.5-5.1)
[2020-12-07 10:28] LABS: ALBUMIN 1.9 g/dl (3.4-5.0); BILIRUBIN,TOTAL 0.3 mg/dL (0.2-1); BLOOD UREA NITROGEN 12.6 mg/dL (7-18); TOT PROT 6.4 g/dl (6.4-8.2)
[2020-12-07 10:29] LABS: CALCIUM 7.2 mg/dL (8.5-10.1)
[2020-12-07 10:31] LABS: CREATININE 0.8 mg/dL (0.55-1.3)
[2020-12-07 10:32] LABS: PHOSPHOROUS 3.5 mg/dL (2.5-4.9)
[2020-12-07] MEDS: ENOXAPARIN NA (PORCINE) 40 MG/0.4 ML DISP.SYRIN SQ SCH (10:36)
[2020-12-07] MEDS: AMINO ACIDS/PROTEIN HYDROLYS 30 ML LIQUID.PKT PO SCH ×2 (10:36→18:04)
[2020-12-07] MEDS: levETIRAcetam 500 MG/5 ML ORAL SOLUTION (UNIT-DOSE CUPS) GT SCH ×2 (10:37→23:01)
[2020-12-07] MEDS: FUROSEMIDE 40 MG/4 ML INJECTABLE VIAL IVPUSH SCH (10:38)
[2020-12-07] MEDS: Lacosamide 50 MG/5 ML ORAL SOLUTION UNIT CUPS GT SCH ×2 (10:38→23:02)
[2020-12-07] MEDS: ARIPiprazole 15 MG TABLET NR SCH (10:39)
[2020-12-07] MEDS: ARTIFICIAL TEARS (POLYVINYL ALCOHOL) OPTH DROPS OU SCH ×2 (10:40→23:00)
[2020-12-07] MEDS: PANTOPRAZOLE SODIUM 40 MG VIAL IVPUSH SCH (10:40)
[2020-12-07] MEDS: LACTOBACILLUS ACIDOPHILUS 1 TABLET PO SCH (10:41)
[2020-12-07] MEDS: amLODIPine BESYLATE 5 MG TABLET (FP) GT SCH (10:44)
[2020-12-07] MEDS: LINEZOLID 600 MG PREMIX BAG 600 MG/300 ML BAG IVPB SCH ×2 (12:48→23:03)
[2020-12-07] MEDS ORDERED: MAGNESIUM OXIDE 400 MG TABLET (FP) PO ONE (12:56)
[2020-12-07] MEDS ORDERED: MAGNESIUM SULF 50% (8.12 MEQ/2 ML-1 GM VIAL) IVPB ONE ×2 (15:15→22:00)
[2020-12-08] MEDS ORDERED: MEROPENEM 1 GM VIAL (RESTRICTED TO ID) IVPB ONE ×3 (01:09→17:38)
[2020-12-08] MEDS ORDERED: DEXTROSE 5%-WATER 100 ML IVPB ONE ×3 (01:09→17:38)
[2020-12-08] MEDS: MEROPENEM 1 GM in DEXTROSE 5%-WATER 100 ML IVPB SCH ×3 (01:41→17:40)
[2020-12-08] MEDS: BANATROL PLUS POWDER PACKET PO SCH ×3 (06:48→22:39)
[2020-12-08] MEDS: busPIRone HCL 10 MG TABLET (FP) PO SCH ×3 (06:48→22:39)
[2020-12-08] MEDS: LEVOTHYROXINE NA 25 MCG TABLET (FP) PO SCH (06:48)
[2020-12-08] MEDS: METOCLOPRAMIDE HCL 10 MG/10 ML UNIT DOSE CUP GT SCH ×3 (06:48→22:40)
[2020-12-08] MEDS ORDERED: LORazepam 2 MG/ML SDV VIAL IVPUSH PRN (09:03)
[2020-12-08] MEDS: AMINO ACIDS/PROTEIN HYDROLYS 30 ML LIQUID.PKT PO SCH (09:28)
[2020-12-08] MEDS: Lacosamide 50 MG/5 ML ORAL SOLUTION UNIT CUPS GT SCH ×2 (09:29→22:40)
[2020-12-08] MEDS: levETIRAcetam 500 MG/5 ML ORAL SOLUTION (UNIT-DOSE CUPS) GT SCH ×2 (09:30→22:39)
[2020-12-08] MEDS: PANTOPRAZOLE SODIUM 40 MG VIAL IVPUSH SCH (09:30)
[2020-12-08] MEDS: ENOXAPARIN NA (PORCINE) 40 MG/0.4 ML DISP.SYRIN SQ SCH (09:30)
[2020-12-08] MEDS: amLODIPine BESYLATE 5 MG TABLET (FP) GT SCH (09:30)
[2020-12-08] MEDS: FUROSEMIDE 40 MG/4 ML INJECTABLE VIAL IVPUSH SCH (09:30)
[2020-12-08] MEDS: LACTOBACILLUS ACIDOPHILUS 1 TABLET PO SCH (09:31)
[2020-12-08] MEDS: ARIPiprazole 15 MG TABLET NR SCH (09:31)
[2020-12-08] MEDS: ARTIFICIAL TEARS (POLYVINYL ALCOHOL) OPTH DROPS OU SCH ×2 (09:31→22:39)
[2020-12-08 10:00] LABS: BASO % 0.5 % (0-2.0); EOS % 2.9 % (0-4.5); HEMATOCRIT 24.7 % (35.4-49); HEMOGLOBIN 8.4 GM/dL (11.7-16.9); LYMPH % 21.1 % (8-40); MCH 28.3 pg (25.7-33.7); MCHC 33.8 g/dl (32.0-35.9); MEAN CELL VOLUME 83.5 fl (80-96); MEAN PLT VOLUME 11.8 fl (7.5-11.1); MONO % 7.4 % (3.8-10.2); NEUT % 68.1 % (42.8-82.8); PLATELET COUNT 149 K/MM3 (134-434); RBC 2.96 M/mm3 (4.00-5.60); RDW 17.1 % (11.9-15.9); WHITE BLOOD COUNT 9.5 K/mm3 (4.0-10.0)
[2020-12-08 10:18] LABS: POTASSIUM 3.8 mmol/L (3.5-5.1)
[2020-12-08 10:28] LABS: ALBUMIN 1.8 g/dl (3.4-5.0); BLOOD UREA NITROGEN 13.4 mg/dL (7-18); MAGNESIUM 1.7 mg/dL (1.8-2.4)
[2020-12-08 10:31] LABS: CREATININE 0.8 mg/dL (0.55-1.3)
[2020-12-08 10:32] LABS: BILIRUBIN,TOTAL 0.4 mg/dL (0.2-1); PHOSPHOROUS 3.2 mg/dL (2.5-4.9)
[2020-12-08 10:33] LABS: TOT PROT 6.5 g/dl (6.4-8.2)
[2020-12-08] MEDS: LINEZOLID 600 MG PREMIX BAG 600 MG/300 ML BAG IVPB SCH ×2 (11:32→22:40)
[2020-12-08] MEDS ORDERED: MAGNESIUM SULF 50% (8.12 MEQ/2 ML-1 GM VIAL) IVPB ONE (14:09)
[2020-12-08 16:03] VITALS: BMI 28.4
[2020-12-09] MEDS ORDERED: MEROPENEM 1 GM VIAL (RESTRICTED TO ID) IVPB ONE ×3 (00:05→18:41)
[2020-12-09] MEDS ORDERED: DEXTROSE 5%-WATER 100 ML IVPB ONE ×3 (00:06→18:41)
[2020-12-09] MEDS: MEROPENEM 1 GM in DEXTROSE 5%-WATER 100 ML IVPB SCH ×3 (01:28→18:42)
[2020-12-09] MEDS: BANATROL PLUS POWDER PACKET PO SCH ×3 (06:47→22:30)
[2020-12-09] MEDS: METOCLOPRAMIDE HCL 10 MG/10 ML UNIT DOSE CUP GT SCH ×3 (06:47→22:29)
[2020-12-09] MEDS: busPIRone HCL 10 MG TABLET (FP) PO SCH ×3 (06:47→22:30)
[2020-12-09] MEDS: LEVOTHYROXINE NA 25 MCG TABLET (FP) PO SCH (06:47)
[2020-12-09] MEDS ORDERED: PT OWN MED DRAWER 7, Y5N ONE (09:04)
[2020-12-09] MEDS: ARIPiprazole 15 MG TABLET NR SCH (09:05)
[2020-12-09] MEDS: ARTIFICIAL TEARS (POLYVINYL ALCOHOL) OPTH DROPS OU SCH ×2 (09:05→22:30)
[2020-12-09] MEDS: PANTOPRAZOLE SODIUM 40 MG VIAL IVPUSH SCH (09:06)
[2020-12-09] MEDS: Lacosamide 50 MG/5 ML ORAL SOLUTION UNIT CUPS GT SCH ×2 (09:06→22:29)
[2020-12-09] MEDS: levETIRAcetam 500 MG/5 ML ORAL SOLUTION (UNIT-DOSE CUPS) GT SCH ×2 (09:06→22:29)
[2020-12-09] MEDS: LACTOBACILLUS ACIDOPHILUS 1 TABLET PO SCH (09:06)
[2020-12-09] MEDS: ENOXAPARIN NA (PORCINE) 40 MG/0.4 ML DISP.SYRIN SQ SCH (09:07)
[2020-12-09] MEDS: amLODIPine BESYLATE 5 MG TABLET (FP) GT SCH (09:07)
[2020-12-09] MEDS: FUROSEMIDE 40 MG/4 ML INJECTABLE VIAL IVPUSH SCH (09:07)
[2020-12-09 09:20] LABS: POTASSIUM 4.5 mmol/L (3.5-5.1)
[2020-12-09 09:22] LABS: BASO % 0.7 % (0-2.0); EOS % 2.3 % (0-4.5); HEMOGLOBIN 8.8 GM/dL (11.7-16.9); LYMPH % 16.7 % (8-40); MCH 27.6 pg (25.7-33.7); MCHC 32.6 g/dl (32.0-35.9); MEAN CELL VOLUME 84.7 fl (80-96); MEAN PLT VOLUME 12.2 fl (7.5-11.1); MONO % 7.8 % (3.8-10.2); NEUT % 72.5 % (42.8-82.8); PLATELET COUNT 154 K/MM3 (134-434); RBC 3.18 M/mm3 (4.00-5.60); RDW 17.6 % (11.9-15.9); WHITE BLOOD COUNT 11.2 K/mm3 (4.0-10.0)
[2020-12-09 09:24] LABS: ALBUMIN 1.9 g/dl (3.4-5.0); BLOOD UREA NITROGEN 12.8 mg/dL (7-18); CALCIUM 8.3 mg/dL (8.5-10.1); MAGNESIUM 1.7 mg/dL (1.8-2.4)
[2020-12-09 09:27] LABS: CREATININE 0.7 mg/dL (0.55-1.3)
[2020-12-09 09:29] LABS: BILIRUBIN,TOTAL 0.4 mg/dL (0.2-1)
[2020-12-09] MEDS ORDERED: MAGNESIUM SULF 50% (8.12 MEQ/2 ML-1 GM VIAL) IVPB ONE (10:15)
[2020-12-09] MEDS: LINEZOLID 600 MG PREMIX BAG 600 MG/300 ML BAG IVPB SCH ×2 (12:00→22:29)
[2020-12-10] MEDS ORDERED: MEROPENEM 1 GM VIAL (RESTRICTED TO ID) IVPB ONE ×3 (01:05→18:07)
[2020-12-10] MEDS ORDERED: DEXTROSE 5%-WATER 100 ML IVPB ONE ×3 (01:05→18:07)
[2020-12-10] MEDS: MEROPENEM 1 GM in DEXTROSE 5%-WATER 100 ML IVPB SCH ×3 (01:10→18:13)
[2020-12-10] MEDS: busPIRone HCL 10 MG TABLET (FP) PO SCH ×3 (05:06→23:29)
[2020-12-10] MEDS: METOCLOPRAMIDE HCL 10 MG/10 ML UNIT DOSE CUP GT SCH ×3 (05:06→23:29)
[2020-12-10] MEDS: BANATROL PLUS POWDER PACKET PO SCH ×3 (05:06→23:32)
[2020-12-10] MEDS: LEVOTHYROXINE NA 25 MCG TABLET (FP) PO SCH (06:03)
[2020-12-10 09:57] LABS: BASO % 0.7 % (0-2.0); EOS % 2.2 % (0-4.5); HEMATOCRIT 27.8 % (35.4-49); HEMOGLOBIN 9.1 GM/dL (11.7-16.9); MCH 27.8 pg (25.7-33.7); MCHC 32.8 g/dl (32.0-35.9); MEAN CELL VOLUME 84.5 fl (80-96); MEAN PLT VOLUME 11.9 fl (7.5-11.1); MONO % 9.6 % (3.8-10.2); NEUT % 65.5 % (42.8-82.8); PLATELET COUNT 155 K/MM3 (134-434); RBC 3.29 M/mm3 (4.00-5.60); RDW 17.7 % (11.9-15.9); WHITE BLOOD COUNT 9.4 K/mm3 (4.0-10.0)
[2020-12-10 10:14] LABS: POTASSIUM 4.1 mmol/L (3.5-5.1)
[2020-12-10 10:19] LABS: CALCIUM 8.3 mg/dL (8.5-10.1)
[2020-12-10 10:21] LABS: ALBUMIN 2.1 g/dl (3.4-5.0); BLOOD UREA NITROGEN 11.4 mg/dL (7-18); MAGNESIUM 1.7 mg/dL (1.8-2.4)
[2020-12-10 10:24] LABS: CREATININE 0.7 mg/dL (0.55-1.3); PHOSPHOROUS 3.2 mg/dL (2.5-4.9)
[2020-12-10 10:25] LABS: BILIRUBIN,TOTAL 0.6 mg/dL (0.2-1); TOT PROT 7.3 g/dl (6.4-8.2)
[2020-12-10] MEDS: PANTOPRAZOLE SODIUM 40 MG VIAL IVPUSH SCH (10:25)
[2020-12-10] MEDS: Lacosamide 50 MG/5 ML ORAL SOLUTION UNIT CUPS GT SCH ×2 (10:25→23:30)
[2020-12-10] MEDS: ENOXAPARIN NA (PORCINE) 40 MG/0.4 ML DISP.SYRIN SQ SCH (10:26)
[2020-12-10] MEDS: ARIPiprazole 15 MG TABLET NR SCH (10:26)
[2020-12-10] MEDS: levETIRAcetam 500 MG/5 ML ORAL SOLUTION (UNIT-DOSE CUPS) GT SCH ×2 (10:26→23:30)
[2020-12-10] MEDS: ARTIFICIAL TEARS (POLYVINYL ALCOHOL) OPTH DROPS OU SCH ×2 (10:27→23:32)
[2020-12-10] MEDS: amLODIPine BESYLATE 5 MG TABLET (FP) GT SCH (10:27)
[2020-12-10] MEDS: FUROSEMIDE 40 MG TABLET (FP) PO SCH (10:27)
[2020-12-10] MEDS: LACTOBACILLUS ACIDOPHILUS 1 TABLET PO SCH (10:27)
[2020-12-10] MEDS: LINEZOLID 600 MG PREMIX BAG 600 MG/300 ML BAG IVPB SCH ×2 (12:15→23:34)
[2020-12-10] MEDS ORDERED: MAGNESIUM SULF 50% (8.12 MEQ/2 ML-1 GM VIAL) IVPB ONE (13:00)
[2020-12-10] MEDS: LORazepam 0.5 MG TABLET PO PRN (15:30)
[2020-12-10] MEDS ORDERED: PT OWN MED DRAWER 7, Y5N ONE (23:28)
[2020-12-10] MEDS: FAMOTIDINE 40 MG/5 ML ORAL SUSPENSION PO SCH (23:33)
[2020-12-11] MEDS ORDERED: MEROPENEM 1 GM VIAL (RESTRICTED TO ID) IVPB ONE ×2 (02:51→08:19)
[2020-12-11] MEDS ORDERED: DEXTROSE 5%-WATER 100 ML IVPB ONE ×2 (02:51→08:19)
[2020-12-11] MEDS: MEROPENEM 1 GM in DEXTROSE 5%-WATER 100 ML IVPB SCH ×2 (02:53→09:01)
[2020-12-11] MEDS: LORazepam 0.5 MG TABLET PO PRN ×2 (03:35→11:40)
[2020-12-11] MEDS: LEVOTHYROXINE NA 25 MCG TABLET (FP) PO SCH (06:01)
[2020-12-11] MEDS: METOCLOPRAMIDE HCL 10 MG/10 ML UNIT DOSE CUP GT SCH ×2 (06:01→13:01)
[2020-12-11] MEDS: busPIRone HCL 10 MG TABLET (FP) PO SCH ×2 (06:01→13:00)
[2020-12-11] MEDS: BANATROL PLUS POWDER PACKET PO SCH ×2 (06:02→13:01)
[2020-12-11] MEDS: LACTOBACILLUS ACIDOPHILUS 1 TABLET PO SCH (09:01)
[2020-12-11] MEDS: ENOXAPARIN NA (PORCINE) 40 MG/0.4 ML DISP.SYRIN SQ SCH (09:01)
[2020-12-11] MEDS: FUROSEMIDE 40 MG TABLET (FP) PO SCH (09:01)
[2020-12-11] MEDS: Lacosamide 50 MG/5 ML ORAL SOLUTION UNIT CUPS GT SCH (09:01)
[2020-12-11] MEDS: ARTIFICIAL TEARS (POLYVINYL ALCOHOL) OPTH DROPS OU SCH (09:02)
[2020-12-11] MEDS: levETIRAcetam 500 MG/5 ML ORAL SOLUTION (UNIT-DOSE CUPS) GT SCH (09:02)
[2020-12-11] MEDS: amLODIPine BESYLATE 5 MG TABLET (FP) GT SCH (09:03)
[2020-12-11] MEDS: FAMOTIDINE 40 MG/5 ML ORAL SUSPENSION PO SCH (09:06)
[2020-12-11] MEDS: ARIPiprazole 15 MG TABLET NR SCH (09:07)
[2020-12-11] MEDS: LINEZOLID 600 MG PREMIX BAG 600 MG/300 ML BAG IVPB SCH (10:00)
[2020-12-11] MEDS ORDERED: PANTOPRAZOLE 40 MG TABLET PO SCH (10:00)
[2020-12-11 10:10] LABS: BASO % 0.6 % (0-2.0); EOS % 1.5 % (0-4.5); HEMATOCRIT 27.5 % (35.4-49); LYMPH % 17.2 % (8-40); MCH 27.6 pg (25.7-33.7); MCHC 32.7 g/dl (32.0-35.9); MEAN CELL VOLUME 84.4 fl (80-96); MEAN PLT VOLUME 11.7 fl (7.5-11.1); NEUT % 73.7 % (42.8-82.8); PLATELET COUNT 164 K/MM3 (134-434); RBC 3.26 M/mm3 (4.00-5.60); RDW 17.4 % (11.9-15.9); WHITE BLOOD COUNT 11.7 K/mm3 (4.0-10.0)
[2020-12-11 12:57] VITALS: BP 142/82; PULSE 88; TEMP 98.4
== END 2020-12-11 14:05 | DRG 870 ==
LOC: JER 11:56 → JERBED 15:19 → JICU 11-30 21:46 → J5S 12-07 03:34
PROVIDERS: ADMIT Internal Medicine; ATTEND Internal Medicine
PROC: 0B21XFZ Change Tracheostomy Device in Trachea, External Approach (ICD-10-PCS; principal; 2020-11-28)
PROC: 5A1955Z Respiratory Ventilation, Greater than 96 Consecutive Hours (ICD-10-PCS; 2020-11-28)
PROC: 30233N1 Transfusion of Nonautologous Red Blood Cells into Peripheral Vein, Percutaneous Approach (ICD-10-PCS; 2020-11-30)
PROC: 3E0G76Z Introduction of Nutritional Substance into Upper GI, Via Natural or Artificial Opening (ICD-10-PCS; 2020-12-04)
DX: A41.89 Other specified sepsis (principal); J96.21 Acute and chronic respiratory failure with hypoxia; J18.9 Pneumonia, unspecified organism; J95.09 Other tracheostomy complication; T80.211A Bloodstream infection due to central venous catheter, initial encounter; E88.42 MERRF syndrome; D62 Acute posthemorrhagic anemia; E87.0 Hyperosmolality and hypernatremia; N39.0 Urinary tract infection, site not specified; J90 Pleural effusion, not elsewhere classified; E03.9 Hypothyroidism, unspecified; E78.5 Hyperlipidemia, unspecified; E87.6 Hypokalemia; E83.42 Hypomagnesemia; F20.9 Schizophrenia, unspecified; E11.9 Type 2 diabetes mellitus without complications; I10 Essential (primary) hypertension; Z86.11 Personal history of tuberculosis; J45.909 Unspecified asthma, uncomplicated; D64.9 Anemia, unspecified; R19.7 Diarrhea, unspecified; F31.9 Bipolar disorder, unspecified; G40.309 Generalized idiopathic epilepsy and epileptic syndromes, not intractable, without status epilepticus; G80.9 Cerebral palsy, unspecified; R91.8 Other nonspecific abnormal finding of lung field; D72.829 Elevated white blood cell count, unspecified; Y83.8 Other surgical procedures as the cause of abnormal reaction of the patient, or of later complication, without mention of misadventure at the time of the procedure; R50.9 Fever, unspecified; Z93.1 Gastrostomy status; Z86.73 Personal history of transient ischemic attack (TIA), and cerebral infarction without residual deficits
CPT/HCPCS: 36415; 36430; 36600; 71045-TC-FY; 74176-TC; 80048; 80053; 80061; 81003; 82040; 82248; 82272; 82436; 82550; 82565; 82728; 82803; 82962; 83036; 83605; 83615; 83721; 83735; 83880; 84100; 84133; 84300; 84443; 84484; 85025; 85027; 85379; 85610; 86140; 86850; 86900; 86901; 86922; 87040; 87077; 87086; 87177; 87186; 87205; 87209; 87324; 87449; 93005; 93010; 93306-TC; 93971; 94002; 99285-25; C9803; E0186; G0480; J1100; J3480; P9058; U0003

== ENCOUNTER 2020-12-21 22:47 | Emergency (ER) | payer OTHER ==
[2020-12-21 23:08] VITALS: BMI 23.6
[2020-12-22 02:13] VITALS: BP 111/42; PULSE 53; TEMP 98.2
== END 2020-12-22 06:03 ==
LOC: JER 22:47
DX: Z93.1 Gastrostomy status (principal)
CPT/HCPCS: 99283-25

== ENCOUNTER 2020-12-23 20:59 | Emergency (ER) | payer OTHER ==
[2020-12-23 21:39] VITALS: TEMP 98.1; BMI 24.0
[2020-12-24 01:15] VITALS: BP 118/88; PULSE 91
== END 2020-12-24 02:12 ==
LOC: JER 20:59
DX: K94.23 Gastrostomy malfunction (principal); Z93.1 Gastrostomy status
CPT/HCPCS: 74018-TC-FY; 99284-25

== ENCOUNTER 2021-01-06 20:15 | Emergency (ER) | payer OTHER ==
[2021-01-06 21:16] VITALS: BP 94/66; PULSE 90; TEMP 98; BMI 23.5
== END 2021-01-06 22:15 | disposition short-term general hospital (02) ==
LOC: JER 20:15
DX: J95.09 Other tracheostomy complication (principal)
CPT/HCPCS: 99283-25

== ENCOUNTER 2021-01-18 21:33 | Emergency (ER) | payer OTHER ==
[2021-01-18 22:41] VITALS: TEMP 97.8; BMI 23.5
[2021-01-19 03:18] VITALS: BP 111/84; PULSE 106
== END 2021-01-19 05:42 | disposition home or self-care (01) ==
LOC: JER 21:33
DX: K94.29 Other complications of gastrostomy (principal)
CPT/HCPCS: 74018-TC-FY; 99283-25

== ENCOUNTER 2021-02-18 11:12 | Emergency (ER) | payer OTHER ==
[2021-02-18 11:23] VITALS: BMI 25.5
[2021-02-18 13:55] VITALS: BP 119/72; PULSE 72; TEMP 98.1
== END 2021-02-18 13:57 ==
LOC: JER 11:12
PROC: 0D20XUZ Change Feeding Device in Upper Intestinal Tract, External Approach (ICD-10-PCS; principal; 2021-02-18)
DX: K94.23 Gastrostomy malfunction (principal)
CPT/HCPCS: 43762; 74018-TC-FY; 99283-25